=== PATIENT | female | born 1975 | race Caucasian/White ===

== ENCOUNTER 2018-11-06 19:10 | Emergency (ER) | payer OTHER ==
[2018-11-06] MEDS: ONDANSETRON (ODT) 4 MG TAB ODT (20:40)
[2018-11-06 20:42] LABS: ADD MAN DIFF? NO
[2018-11-06 20:43] LABS: WHITE BLOOD COUNT 10.9 10^3/ul (4.8-10.8)
[2018-11-06 20:43] LABS: BASOPHIL # 0.1 10^3/ul (0.0-0.1); BASOPHILS % 0.6 % (0.0-2.0); EOSINOPHILS # 0.1 10^3/ul (0.0-0.5); EOSINOPHILS % 0.7 % (0.0-7.0); HEMATOCRIT 44.8 % (37.0-47.0); HEMOGLOBIN 14.9 g/dl (12.0-16.0); LYMPHOCYTES # 3.3 10^3/ul (0.8-2.9); LYMPHOCYTES % 30.2 % (15.0-51.0); MEAN CORPUSCULAR HEMOGLOBIN 28.3 pg (29.0-33.0); MEAN CORPUSCULAR HGB CONC 33.3 g/dl (32.0-37.0); MEAN CORPUSCULAR VOLUME 85.2 fl (82.0-101.0); MEAN PLATELET VOLUME 9.7 fl (7.4-10.4); MONOCYTE # 0.7 10^3/ul (0.3-0.9); MONOCYTES % 6.5 % (0.0-11.0); NEUTROPHIL # 6.7 10^3/ul (1.6-7.5); NEUTROPHILS % 61.6 % (39.0-77.0); PLATELET COUNT 277 10^3/UL (140-415); RED BLOOD COUNT 5.26 10^6/ul (4.20-5.40); RED CELL DISTRIBUTION WIDTH 11.9 % (11.5-14.5)
[2018-11-06 20:47] LABS: URINE BLOOD (Dip) POC 1+ (NEGATIVE); URINE GLUCOSE (Dip) POC Negative (NEGATIVE); URINE KETONES (Dip) POC Negative (NEGATIVE); URINE LEUKOCYTE EST (Dip) POC 3+ (NEGATIVE); URINE NITRITE (Dip) POC Negative (NEGATIVE); URINE TOTAL PROTEIN POC Negative (NEGATIVE)
[2018-11-06 20:47] LABS: URINE PH (Dip) POC 7.5 (5.0-8.5)
[2018-11-06] MEDS: LORAZEPAM 0.5 MG TAB PO (20:54)
[2018-11-06 21:06] LABS: ANION GAP 11 (5-13); BLOOD UREA NITROGEN 7 mg/dl (7-20); CALCIUM 10.2 mg/dl (8.4-10.2); CARBON DIOXIDE 29 mmol/L (21-31); CHLORIDE 103 mmol/L (97-110); CREATININE 0.74 mg/dl (0.44-1.00); Estimated GFR > 60 mL/min (>60); GLUCOSE 111 mg/dl (70-220); POTASSIUM 4.9 mmol/L (3.5-5.1); SODIUM 143 mmol/L (135-144)
== END 2018-11-06 22:00 | disposition home or self-care (01) ==
LOC: FTE 19:10
DX: H81.10 Benign paroxysmal vertigo, unspecified ear (principal); N39.0 Urinary tract infection, site not specified
CPT/HCPCS: 80048; 81003; 81025; 85025; 99283